=== PATIENT | female | born 1990 | race Caucasian/White ===

== ENCOUNTER → 2019-12-19 14:05 | Outpatient (BNVA) | payer OTHER, SELFPAY | PROVIDERS: Family Provider Electrodiagnostic Medicine; PCP Electrodiagnostic Medicine; Visit Provider Internal Medicine | DX: E03.9 Hypothyroidism, unspecified (principal) | CPT/HCPCS: 99203 ==

== ENCOUNTER 2020-02-05 10:52 | Emergency (ER) | payer OTHER, SELFPAY ==
[2020-02-05 11:17] VITALS: BP 132/83; PULSE 92; RESP 16; TEMP 37; O2SAT 97; BMI 30.8
--- NOTE | 2020-02-05 12:54 | CT_ITS ---
WS: [id number] CT ABDOMEN AND PELVIS WITH CONTRAST HISTORY: RLQ pain TECHNIQUE: Imaging performed of the abdomen and pelvis with IV contrast. Single phase imaging of the abdomen. Coronal and sagittal reformats are submitted. All CT scans at [facility] use at least one of these dose optimization techniques: automated exposure control; mA and/or kV adjustment per patient size (includes targeted exams where dose is matched to clinical indication); or iterativ e reconstruction. IV CONTRAST: Omnipaque 300; 95 mL IV. Oral contrast: No DLP: 750.99 mGy.cm COMPARISON: 09/12/2013 Lower thorax: Lung bases are clear. Heart is normal size. No hiatal hernia. Liver/biliary system: Normal size with no intrahepatic dilatation. Gallbladder: Normal. No gallstones or wall thickening. No pericholecystic fluid. Pancreas: Normal. Spleen: Normal. Adrenal glands: Normal. Right kidney: Normal. Left kidney: Normal. Aorta: Normal. Lymphadenopathy: None. Free fluid: None. GI tract: Normal appendix. No GI tract obstruction. No wall thickening or evidence for diverticulitis . Abdominal wall: Unremarkable abdominal wall. No hernia. Pelvis: Normally distended urinary bladder. Small bilateral ovarian follicles. Bones: Straightening of the normal lumbar lordosis. CT/CT abdomen pelvis w con* [id number] IMPRESSION: 1. No evidence for appendicitis. 2. No renal calcification or obstruction. 3. No ascites or acute inflammatory process.
[2020-02-05 12:55] VITALS: O2SAT 97
[2020-02-05] MEDS: sodium chloride 0.9% 1,000 ML 999 ML IV (13:12)
[2020-02-05 13:23] LABS: Basophils % 0.2 %; Eosinophils # 0.1 10^3/uL (0.0-0.8); Eosinophils % 0.8 %; Hematocrit 42.3 % (37.0-47.0); Hemoglobin 13.9 g/dL (11.5-15.3); Lymphocytes # 2.4 10^3/uL (0.8-4.8); Lymphocytes % 22.5 %; Mean Corpuscular HGB Conc 32.9 g/dL (30.0-36.0); Mean Corpuscular Hemoglobin 27.5 pg (28.0-34.0); Mean Corpuscular Volume 83.8 fL (81-99); Mean Platelet Volume 9.8 fL (7.4-10.4); Monocytes # 0.8 10^3/uL (0.2-0.9); Monocytes % 7.4 %; Neutrophils # 7.24 10^3/uL (1.8-7.7); Neutrophils % 68.6 %; Nucleated Red Blood Cells % 0 %; Platelet Count 297 10^3/cmm (130-400); Red Blood Count 5.05 10^6/uL (4.1-5.3); White Blood Count 10.5 10^3/uL (4.0-10.0)
--- NOTE | 2020-02-05 13:23 | ED_ITS ---
HPI - Abdominal Pain General: Chief Complaint: Abdominal Pain Stated Complaint: RLQ pain, n/v Time Seen by Provider: 02/05/20 12:49 History of Present Illness: HPI narrative: This patient is a 30-year-old female comes in today with right lower quadrant pain. It started through the night and she has had some vomiting and dry heaves this morning. She said she was wrestling with her daughter last night and got body slammed onto her right side. She is not sure if that is why she is having the pain or not. She denies any chest pain or shortness of breath. No upper abdominal pain. She went and saw her PCP and he sent her to the ER for evaluation of her appendix. She denies fevers or chills. She has no cough. She denies dysuria or hematuria but it does make her abdomen hurt in the right lower quadrant when she urinates. She has had a hysterectomy but still has her appendix and gallbladder. MD elicited complaint: abdominal pain Pertinent past history: none Onset (ago): day(s) (1) Pain Consistency: constant Location: RLQ Severity: severe Quality: sharp Radiation: none Migration to: no migration Exacerbating factors: movement Relieving factors: nothing Associated Symptoms: Reports anorexia, nausea and vomiting; Denies chills and fever(s) Review of Systems General: Reports: 10 or more systems reviewed and unremarkable except in HPI and below Const: Denies: fever(s), chills, fatigue or malaise Eyes: Denies: change in vision ENMT: Denies: odynophagia Card: Denies: chest pain or swelling of feet/ankles Resp: Denies: dyspnea, productive cough or non-productive cough GI: Reports: abdominal pain, nausea and vomiting : Denies: flank pain or difficulty voiding Musc: Denies: neck pain or back pain Skin/Breast: Denies: rash Neuro: Denies: headache(s), numbness in extremities or weakness in extremities Rayo/Lymph: Denies: easy bruising or easy bleeding PFSH ED PFSH: Medical History Anemia Hypothyroidism Vitamin B deficiency Vitamin D deficiency Surgical History H/O: hysterectomy History of tonsillectomy Family History Mother Stroke Father CAD (coronary artery disease) Myocardial infarction Grandfather Cancer luekemia Grandfather Chronic kidney disease (CKD) Social History Smoking and tobacco status: never smoked Alcohol intake: never Physical Exam Const: COMMON NORMALS: no acute distress, patient oriented x3, no limitations and alert GENERAL APPEARANCE: cooperative and comfortable HENMT: HEAD & SCALP: normal to inspection FACE & SINUS: normal facial exam Eye: GENERAL EYE: appearance normal, both eyes and all related structures Neck/C-Spine: COMMON NORMALS: supple, no meningeal signs and no JVD Chest: COMMONS NORMALS: normal inspection of the chest Resp: COMMON NORMALS: normal respiratory effort, No use of accessory muscles and clear to auscultation bilaterally AUSCULTATION: clear to auscultation bilaterally Cardio: COMMON NORMALS: no JVD, regular rate, regular rhythm and No murmurs present (Cardio) RATE: regular rate RHYTHM: regular rhythm GI: COMMON NORMALS: Normal to inspection, nondistended, normoactive bowel sounds present, Soft to palpation and non-tender INSPECTION: Yes normal to inspection AUSCULTATION: Yes normoactive bowel sounds PALPATION: Yes Soft to palpation and Yes Tenderness to palpation present (GI) Details: RLQ Back/Pelvis: COMMON NORMALS: thoracic and lumbar spine normal to inspection Extremity: COMMON NORMALS: normal to inspection Neuro: COMMON NORMALS: patient oriented x3, moves all extremities, no focal motor deficits and no sensory deficits noted SENSORIUM/ORIENTATION: Yes alert MENINGEAL SIGNS: Yes no meningeal signs Psych: COMMON NORMALS: mental status grossly normal, cooperative and normal affect Skin: COMMON NORMALS: no rashes or lesions noted and turgor normal GENERAL SKIN EXAM: no rashes or lesions noted and turgor normal Course ED course: CT was normal. The patient was counseled that even with a normal CT if she has worsening or persistent symptoms she needs to be reevaluated. She understands and will comply with this Vital Signs: Vital signs: Vital Signs Temperature 98.6 F 02/05/20 11:17 Pulse Rate 86 02/05/20 15:35 Respiratory Rate 16 02/05/20 11:17 Blood Pressure 116/79 02/05/20 15:35 Pulse Oximetry 97 02/05/20 15:35 MDM - Abdominal Pain Lab Data: Labs: Lab Results 02/05/20 02/05/20 02/05/20 Range/Units 13:05 13:05 13:10 WBC 10.5 H (4.0-10.0) 10^3/ uL RBC 5.05 (4.1-5.3) 10^6/u L Hgb 13.9 (11.5-15.3) g/dL Hct 42.3 (37.0-47.0) % MCV 83.8 (81-99) fL MCH 27.5 L (28.0-34.0) pg MCHC 32.9 (30.0-36.0) g/dL RDW 13.0 (12.1-15.1) % Plt Count 297 (130-400) 10^3/c mm MPV 9.8 (7.4-10.4) fL Neut % (Auto) 68.6 % Lymph % (Auto) 22.5 % [place] % (Auto) 7.4 % Eos % (Auto) 0.8 % Baso % (Auto) 0.2 % Neut # (Auto) 7.24 (1.8-7.7) 10^3/u L Lymph # (Auto) 2.4 (0.8-4.8) 10^3/u L [place] # (Auto) 0.8 (0.2-0.9) 10^3/u L Eos # (Auto) 0.1 (0.0-0.8) 10^3/u L Baso # (Auto) 0.0 (0.0-0.1) 10^3/u L Nucleated RBC % (a uto) 0 % Nucleated RBCs # 0.0 /100WBC Sodium (136-145) mmol/L Potassium (3.5-5.1) mmol/L Chloride (98-107) mmol/L Carbon Dioxide (22-29) mmol/L Anion Gap (5-19) BUN (6-20) mg/dL Creatinine (0.5-0.9) mg/dL GFR Calculation (90-130) mL/min Glucose (65-115) mg/dL Calculated Osmolal ity (285-295) mOsm/k g Calcium (8.5-10.5) mg/dL Total Bilirubin (0.15-1.2) mg/dL AST (0-32) U/L ALT (0-33) U/L Alkaline Phosphata se (35-105) IU/L Total Protein (6.6-8.7) g/dL Albumin (3.5-5.2) g/dL Globulin (1.3-4.6) g/dL Lipase (13-60) U/L Urine Color Yellow (Yellow) Urine Appearance Hazy A (CLEAR) Urine pH 7 (5-7) Ur Specific Gravit y 1.010 (1.005-1.030) Urine Protein Neg (Negative) Urine Glucose (UA) Norm (Normal) Urine Ketones 1+ H (Negative) Urine Blood Neg (Negative) Urine Nitrate Negative (Negative) Urine Bilirubin Neg (Negative) Urine Urobilinogen Norm (Negative) mg/dL Ur Leukocyte Anna Marie ase Negative (Negative) Urine RBC 0-4 H (0-2) /hpf Urine WBC 0-4 H (0-5) /hpf Ur Squamous Epith Cells 0-4 H (0-5) /hpf Amorphous Sediment Not Reportable Urine Bacteria 2+ H (NONE) /hpf Urine Mucus 1+ /hpf Urine HCG, Qual Negative (Negative) 02/05/20 Range/Units 13:10 WBC (4.0-10.0) 10^3/ uL RBC (4.1-5.3) 10^6/u L Hgb (11.5-15.3) g/dL Hct (37.0-47.0) % MCV (81-99) fL MCH (28.0-34.0) pg MCHC (30.0-36.0) g/dL RDW (12.1-15.1) % Plt Count (130-400) 10^3/c mm MPV (7.4-10.4) fL Neut % (Auto) % Lymph % (Auto) % [place] % (Auto) % Eos % (Auto) % Baso % (Auto) % Neut # (Auto) (1.8-7.7) 10^3/u L Lymph # (Auto) (0.8-4.8) 10^3/u L [place] # (Auto) (0.2-0.9) 10^3/u L Eos # (Auto) (0.0-0.8) 10^3/u L Baso # (Auto) (0.0-0.1) 10^3/u L Nucleated RBC % (a uto) % Nucleated RBCs # /100WBC Sodium 140 (136-145) mmol/L Potassium 3.8 (3.5-5.1) mmol/L Chloride 102 (98-107) mmol/L Carbon Dioxide 26 (22-29) mmol/L Anion Gap 15.8 (5-19) BUN 9 (6-20) mg/dL Creatinine 0.8 (0.5-0.9) mg/dL GFR Calculation 83.7 L (90-130) mL/min Glucose 101 (65-115) mg/dL Calculated Osmolal ity 289 (285-295) mOsm/k g Calcium 9.8 (8.5-10.5) mg/dL Total Bilirubin 0.5 (0.15-1.2) mg/dL AST 28 (0-32) U/L ALT 15 (0-33) U/L Alkaline Phosphata se 103 (35-105) IU/L Total Protein 7.8 (6.6-8.7) g/dL Albumin 4.6 (3.5-5.2) g/dL Globulin 3.2 (1.3-4.6) g/dL Lipase 22 (13-60) U/L Urine Color (Yellow) Urine Appearance (CLEAR) Urine pH (5-7) Ur Specific Gravit y (1.005-1.030) Urine Protein (Negative) Urine Glucose (UA) (Normal) Urine Ketones (Negative) Urine Blood (Negative) Urine Nitrate (Negative) Urine Bilirubin (Negative) Urine Urobilinogen (Negative) mg/dL Ur Leukocyte Anna Marie ase (Negative) Urine RBC (0-2) /hpf Urine WBC (0-5) /hpf Ur Squamous Epith Cells (0-5) /hpf Amorphous Sediment Urine Bacteria (NONE) /hpf Urine Mucus /hpf Urine HCG, Qual (Negative) Discharge Plan Discharge Patient Disposition: Home Clinical Impression: Abdominal pain Qualifiers: Abdominal location: right lower quadrant Qualified Code(s): R10.31 - Right lower quadrant pain Condition: Stable Prescriptions: No Action levothyroxine 50 mcg capsule 50 mcg PO DAILY RF: 0 multivitamin Capsule 1 cap PO DAILY RF: 0 Discharge Orders: Discharge Order (Routine); Ordered 02/05/20 Ordered By: Tena Martin Referrals: Fabrice Lu DO [Primary Care Provider] - Discharge Diet: Usual diet Discharge Activity: Resume usual activity Patient Instructions: Abdominal Pain (ED) Activity Restrictions/Additional Instructions: Please return to the ER if you do not feel that you are getting better or if you have worsening symptoms over the next day. Although the CT and blood work was normal today continuing symptoms would indicate need for further work-up. Discharge Date/Time: 02/05/20 15:35 Coding Level of Care Code ED Mooner for Chg Fwd Exam Comprehensive
[2020-02-05 13:34] LABS: Add Urine Microscopic? YES; Bilirubin Urine Neg (Negative); Blood Urine Neg (Negative); Glucose Urine UA Norm (Normal); Ketones Urine 1+ (Negative); Leukocyte Esterase Urine Negative (Negative); Nitrate Urine Negative (Negative); Protein Urine Neg (Negative); Urine Appearance Hazy (CLEAR); Urine Color Yellow (Yellow); Urobilinogen Urine Norm (Negative); pH Urine 7 (5-7)
--- NOTE | 2020-02-05 13:45 | PC.NURSE ---
pt to ct scan by stretcher with tech
[2020-02-05 13:47] LABS: Alanine Aminotransferase 15 U/L (0-33); Albumin Level 4.6 g/dL (3.5-5.2); Alkaline Phosphatase 103 IU/L (35-105); Anion Gap 15.8 (5-19); Aspartate Amino Transferase 28 U/L (0-32); Blood Urea Nitrogen 9 mg/dL (6-20); Calcium 9.8 mg/dL (8.5-10.5); Carbon Dioxide 26 mmol/L (22-29); Chloride 102 mmol/L (98-107); Globulin 3.2 g/dL (1.3-4.6); Glomerular Filtration Rate 83.7 mL/min (90-130); Glucose 101 mg/dL (65-115); Lipase 22 U/L (13-60); Osmolality Calculated 289 mOsm/kg (285-295); Potassium 3.8 mmol/L (3.5-5.1); Sodium 140 mmol/L (136-145); Total Bilirubin 0.5 mg/dL (0.15-1.2); Total Protein 7.8 g/dL (6.6-8.7)
[2020-02-05 13:48] LABS: WBC Urine 0-4 /hpf (0-5)
[2020-02-05 13:49] LABS: Add Urine Culture? Yes; Bacteria Urine 2+ /hpf; Mucus Urine 1+ /hpf; RBC Urine 0-4 /hpf (0-2); Squamous Epithelial Cell Urine 0-4 /hpf (0-5)
[2020-02-05] MEDS: iohexol 300 mg/mL 100 mL Btl IV (13:49)
--- NOTE | 2020-02-05 15:19 | PC.NURSE ---
pt states her abd pain is worsening. pt continues to deny the need or want for any pain medication
[2020-02-05 15:35] VITALS: BP 116/79; PULSE 86; O2SAT 97
== END 2020-02-05 15:35 | disposition home or self-care (01) ==
PROVIDERS: Nurse Practitioner Family; Emergency Provider Emergency Medicine; Family Provider Electrodiagnostic Medicine; PCP Electrodiagnostic Medicine
DX: R10.31 Right lower quadrant pain (principal)
CPT/HCPCS: 12345; 74177; 80053; 81001; 81025; 83690; 85025; 87086; 96360; 99283; J7030; Q9967

== ENCOUNTER 2020-02-28 16:02 | Outpatient (CLI) | payer OTHER, SELFPAY ==
[2020-02-28 17:21] LABS: Free T4 Free Thyroxine 1.53 ng/dL (0.82-1.77); Thyroid Stimulating Hormone 1.25 uIU/mL (0.27-4.20)
== END 2020-02-28 16:03 | disposition home or self-care (01) ==
LOC: LAB 16:13
PROVIDERS: Family Provider Electrodiagnostic Medicine; PCP Electrodiagnostic Medicine; Visit Provider Internal Medicine
DX: E03.9 Hypothyroidism, unspecified (principal)
CPT/HCPCS: 36415; 84439; 84443; 86376

== ENCOUNTER → 2020-03-02 15:56 | Outpatient (BNVA) | payer OTHER, SELFPAY | PROVIDERS: Family Provider Electrodiagnostic Medicine; PCP Electrodiagnostic Medicine; Visit Provider Internal Medicine | DX: E03.9 Hypothyroidism, unspecified (principal) | CPT/HCPCS: 99213 ==

== ENCOUNTER → 2020-05-25 16:15 | Outpatient (BNVA) | payer OTHER, SELFPAY | PROVIDERS: Family Provider Electrodiagnostic Medicine; PCP Electrodiagnostic Medicine; Visit Provider Internal Medicine | DX: E03.9 Hypothyroidism, unspecified (principal); R23.2 Flushing | CPT/HCPCS: 99214 ==

== ENCOUNTER 2020-08-22 20:55 | Emergency (ER) | payer OTHER, SELFPAY ==
[2020-08-22 21:03] VITALS: BP 143/76; PULSE 111; RESP 18; TEMP 36.9; O2SAT 99; BMI 29.5
--- NOTE | 2020-08-22 21:50 | XRR_ITS ---
PROCEDURE INFORMATION: Exam: XR Chest Exam date and time: 08/22/2020 10:15 PM Age: 30 years old Clinical indication: Chest pain; Type not specified; Additional info: Cp TECHNIQUE: Imaging protocol: XR of the chest. Views: 1 view. COMPARISON: No relevant prior studies available. FINDINGS: Lungs: There are some strandy opacities present in the left lower hemithorax likely representing atelectasis. A left basilar pneumonia cannot entirely excluded. Pleural spaces: Unremarkable. No pleural effusion. No pneumothorax. Heart/Mediastinum: Unremarkable. No cardiomegaly. Bones/joints: Unremarkable. XR/XR chest 1V portable [id number] IMPRESSION: Strandy opacities present in the left lower hemithorax likely represents atelectasis although left basilar pneumonia cannot be entirely excluded.
[2020-08-22 21:56] LABS: Basophils % 0.2 %; Eosinophils # 0.1 10^3/uL (0.0-0.8); Eosinophils % 1.4 %; Hemoglobin 12.6 g/dL (11.5-15.3); Lymphocytes # 3.9 10^3/uL (0.8-4.8); Lymphocytes % 41.3 %; Mean Corpuscular HGB Conc 34.1 g/dL (30.0-36.0); Mean Corpuscular Volume 85.3 fL (81-99); Mean Platelet Volume 10.5 fL (7.4-10.4); Monocytes # 0.8 10^3/uL (0.2-0.9); Monocytes % 8.5 %; Neutrophils # 4.61 10^3/uL (1.8-7.7); Neutrophils % 48.4 %; Nucleated Red Blood Cells % 0 %; Platelet Count 297 10^3/cmm (130-400); Red Blood Count 4.34 10^6/uL (4.1-5.3); Red Cell Distribution Width 12.9 % (12.1-15.1); White Blood Count 9.5 10^3/uL (4.0-10.0)
--- NOTE | 2020-08-22 22:00 | PC.NURSE ---
EKG taken and given to Dr. Tsang
[2020-08-22] MEDS: sodium chloride 0.9% 1,000 ML 999 ML IV (22:04)
[2020-08-22 22:05] LABS: D Dimer 0.66 ug/mIFEU (0-0.59)
[2020-08-22] MEDS: lidocaine 2% viscous 15 ML, aluminum-mag hydrox-simethicon 30 ML, sucralfate oral liq 1 GM PO (22:05)
[2020-08-22 22:07] VITALS: BP 139/87; PULSE 124; RESP 16; O2SAT 99
[2020-08-22 22:08] LABS: Alanine Aminotransferase 20 U/L (0-33); Albumin Level 4.7 g/dL (3.5-5.2); Alkaline Phosphatase 90 IU/L (35-105); Aspartate Amino Transferase 25 U/L (0-32); Blood Urea Nitrogen 12 mg/dL (6-20); Calcium 9.3 mg/dL (8.5-10.5); Carbon Dioxide 22 mmol/L (22-29); Chloride 106 mmol/L (98-107); Globulin 2.1 g/dL (1.3-4.6); Glucose 134 mg/dL (65-115); Lipase 28 U/L (13-60); Osmolality Calculated 294 mOsm/kg (285-295); Sodium 141 mmol/L (136-145); Total Bilirubin 0.2 mg/dL (0.15-1.2); Total Protein 6.8 g/dL (6.6-8.7)
[2020-08-22 22:11] LABS: Troponin(5th) Baseline 6 ng/L (0-10)
[2020-08-22 22:20] LABS: Anion Gap 16.6 (5-19); Potassium 3.6 mmol/L (3.5-5.1)
--- NOTE | 2020-08-22 22:28 | CTR_ITS ---
PROCEDURE INFORMATION: Exam: CTA Chest With Contrast Exam date and time: 08/22/2020 10:29 PM Age: 30 years old Clinical indication: Chest pain and sternal or substernal pain; Type not specified TECHNIQUE: Imaging protocol: Computed tomographic angiography of the chest with contrast. 3D rendering (Not supervised by radiologist): MIP and/or 3D reconstructed images were created by the technologist. Radiation optimization: All CT scans at this facility use at least one of these dose optimization techniques: automated exposure control; mA and/or kV adjustment per patient size (includes targeted exams where dose is matched to clinical indication); or iterative reconstruction. Contrast material: OMNIPAQUE 350; Contrast volume: 70 ml; Contrast route: INTRAVENOUS (IV); COMPARISON: CR XR chest 1V portable [id number] 08/22/2020 10:03 PM RADIATION DOSE METRICS: Total DLP (mGy-cm): 515.78 FINDINGS: Pulmonary arteries: Normal. No pulmonary emboli. Aorta: Unremarkable. No aortic aneurysm. No aortic dissection. Lungs: Unremarkable. No consolidation. No masses. Pleural spaces: Unremarkable. No pneumothorax. No pleural effusion. Heart: Unremarkable. No cardiomegaly. No pericardial effusion. Lymph nodes: There is a small the right celiac lymph node present there is below CT criteria for lymphadenopathy. Bones/joints: Unremarkable. No acute fracture. Soft tissues: Unremarkable. CT/CT angio chest PE protcl [id number] IMPRESSION: There is no evidence for pulmonary emboli. There are no acute chest findings. Radiation Dose CTDIVOL = (mGy): DLP = 515.78 (mGy-cm)
[2020-08-22] MEDS: iohexol 350 mg/mL 100 mL Btl IV (22:46)
[2020-08-22 22:57] LABS: Thyroid Stimulating Hormone 1.42 uIU/mL (0.27-4.20)
[2020-08-22] MEDS: LORazepam 2 mg/mL INJ 1 mL 1 MG IVP (23:12)
[2020-08-22] MEDS: metoprolol tartrate 1 mg/1 mL SDV 5 mL 5 MG IV (23:14)
[2020-08-22 23:15] VITALS: BP 107/82; PULSE 104; RESP 17; O2SAT 100
[2020-08-22 23:45] LABS: Troponin 5 2HR 6.17 ng/L (0-10); Troponin 5 2HR Delta 0.17 ABS# (0-10)
[2020-08-22 23:55] VITALS: BP 114/77; PULSE 96; RESP 17; O2SAT 98
--- NOTE | 2020-08-23 07:58 | W.ED.CHESTPA ---
HPI - Chest Pain General: Chief Complaint: Chest Pain Stated Complaint: chest pains passed out in car shaking bad Time Seen by Provider: 08/22/20 21:33 History of Present Illness: HPI narrative: 30-year-old female presents with onset of chest discomfort. She says that she was relaxing at home when it started. It seemed to worsen. On the way to the hospital, she became worried about the pain, started breathing heavily, and had a panic attack . That has improved, but she still having chest discomfort. She locates the pain substernally and epigastric area. She was mildly short of breath with it. She was not nauseated or diaphoretic. MD complaint: chest pain Onset (ago): minute(s) Timing of current episode: constant Prior episodes: No Onset: during rest Pain location: substernal and epigastric Pain radiation: none Quality: aching Relieving factors: nothing Exacerbating factors: nothing Associated symptoms: Reports dyspnea and palpitations; Deny abdominal pain, fever(s), nausea, syncope or vomiting Review of Systems Const: Denies: fever(s) or chills Eyes: Reports: blurry vision (in car on way while hyperventilating. resolved now) ENMT: Denies: throat pain Card: Reports: chest pain and palpitations; Denies: syncope Resp: Reports: dyspnea; Denies: productive cough or non-productive cough GI: Denies: abdominal pain, nausea, vomiting or dysphagia : Denies: difficulty voiding Neuro: Reports: headache(s) PFSH ED PFSH: Medical History (Updated 08/22/20 @ 23:36 by Alek Tsang DO) Anemia Hypothyroidism Vitamin B deficiency Vitamin D deficiency Surgical History H/O: hysterectomy History of tonsillectomy Family History Mother Stroke Father CAD (coronary artery disease) Myocardial infarction Grandfather Cancer luekemia Grandfather Chronic kidney disease (CKD) Social History Smoking and tobacco status: never smoked Alcohol intake: never Physical Exam Const: GENERAL APPEARANCE: well developed and anxious (mildly) ORIENTATION/CONSCIOUSNESS: Yes oriented to person, Yes oriented to place and Yes oriented to time HENMT: COMMON NORMALS: normocephalic, external ears normal and Normal external nose present HEAD & SCALP: normocephalic FACE & SINUS: normal facial exam NOSE: Normal external nose present and No nasal discharge present EXTERNAL EAR: Yes external ears normal Eye: COMMON NORMALS: Equal, round and reactive pupils present, EOMs intact bilaterally and conjunctivae normal EYELID: eyelids normal CONJUNCTIVA: Yes conjunctivae normal PUPIL: Yes Equal, round and reactive pupils present Neck/C-Spine: COMMON NORMALS: full ROM GENERAL: No tracheal deviation Chest: COMMONS NORMALS: normal inspection of the chest CHEST: No tenderness Resp: COMMON NORMALS: clear to auscultation bilaterally EFFORT & INSPECTION: No tachypneic, No respiratory distress, No retractions, No uses accessory muscles and No tracheal deviation AUSCULTATION: clear to auscultation bilaterally, no rhonchi, no wheezes and lung sounds not diminished Cardio: COMMON NORMALS: regular rate and regular rhythm RATE: regular rate RHYTHM: regular rhythm HEART SOUNDS: no murmurs PERIPHERAL PULSES: radial pulses present GI: INSPECTION: No abdominal distension AUSCULTATION: No Hyperactive bowel sounds present and No Hypoactive bowel sounds present PALPATION: Yes Tenderness to palpation present (GI) (mild epigastric), No Guarding due to palpation present (GI) and No Rigid due to palpation PERCUSSION: no dullness to percussion and no tympanic to percussion Neuro: SENSORIUM/ORIENTATION: Yes oriented to person, Yes oriented to place and Yes oriented to time Psych: COMMON NORMALS: mental status grossly normal Skin: COMMON NORMALS: no rashes or lesions noted GENERAL SKIN EXAM: no rashes or lesions noted Course Vital Signs: Vital signs: Vital Signs Temperature 98.4 F 08/22/20 21:03 Pulse Rate 96 08/22/20 23:55 Respiratory Rate 17 08/22/20 23:55 Blood Pressure 114/77 08/22/20 23:55 Pulse Oximetry 98 08/22/20 23:55 MDM - Chest Pain MDM Narrative: Medical decision making narrative: Her EKG showed a sinus tachycardia with a deep S wave in lead I, and a small Q-wave in lead III. No acute ST changes. Labs are essentially normal. D-dimer was minimally elevated per our lab. CTA is negative. GI cocktail did not seem to help her pain much. Discussed the differential diagnosis of causes of chest pain that are of immediate threat, she does not seem to have any of these. She will be allowed discharge. Lab Data: Labs: Lab Results 08/22/20 08/22/20 08/22/20 Range/Units 21:23 21:23 21:23 WBC 9.5 (4.0-10.0) 10^3/ uL RBC 4.34 (4.1-5.3) 10^6/u L Hgb 12.6 (11.5-15.3) g/dL Hct 37.0 (37.0-47.0) % MCV 85.3 (81-99) fL MCH 29.0 (28.0-34.0) pg MCHC 34.1 (30.0-36.0) g/dL RDW 12.9 (12.1-15.1) % Plt Count 297 (130-400) 10^3/c mm MPV 10.5 H (7.4-10.4) fL Neut % (Auto) 48.4 % Lymph % (Auto) 41.3 % [place] % (Auto) 8.5 % Eos % (Auto) 1.4 % Baso % (Auto) 0.2 % Neut # (Auto) 4.61 (1.8-7.7) 10^3/u L Lymph # (Auto) 3.9 (0.8-4.8) 10^3/u L [place] # (Auto) 0.8 (0.2-0.9) 10^3/u L Eos # (Auto) 0.1 (0.0-0.8) 10^3/u L Baso # (Auto) 0.0 (0.0-0.1) 10^3/u L Nucleated RBC % (a uto) 0 % Nucleated RBCs # 0.0 /100WBC D-Dimer 0.66 H (0-0.59) ug/mIFE U Sodium 141 (136-145) mmol/L Potassium 3.6 (3.5-5.1) mmol/L Chloride 106 (98-107) mmol/L Carbon Dioxide 22 (22-29) mmol/L Anion Gap 16.6 (5-19) BUN 12 (6-20) mg/dL Creatinine 0.9 (0.5-0.9) mg/dL GFR Calculation 73.0 L (90-130) mL/min Glucose 134 H (65-115) mg/dL Calculated Osmolal ity 294 (285-295) mOsm/k g Calcium 9.3 (8.5-10.5) mg/dL Total Bilirubin 0.2 (0.15-1.2) mg/dL AST 25 (0-32) U/L ALT 20 (0-33) U/L Alkaline Phosphata se 90 (35-105) IU/L Troponin T Baselin e (0-10) ng/L Troponin T 120 Min [place] (0-10) ng/L Delta Troponin T (0-10) ABS# Total Protein 6.8 (6.6-8.7) g/dL Albumin 4.7 (3.5-5.2) g/dL Globulin 2.1 (1.3-4.6) g/dL Lipase 28 (13-60) U/L TSH (0.27-4.20) uIU/ mL 08/22/20 08/22/20 08/22/20 Range/Units 21:23 21:23 23:19 WBC (4.0-10.0) 10^3/ uL RBC (4.1-5.3) 10^6/u L Hgb (11.5-15.3) g/dL Hct (37.0-47.0) % MCV (81-99) fL MCH (28.0-34.0) pg MCHC (30.0-36.0) g/dL RDW (12.1-15.1) % Plt Count (130-400) 10^3/c mm MPV (7.4-10.4) fL Neut % (Auto) % Lymph % (Auto) % [place] % (Auto) % Eos % (Auto) % Baso % (Auto) % Neut # (Auto) (1.8-7.7) 10^3/u L Lymph # (Auto) (0.8-4.8) 10^3/u L [place] # (Auto) (0.2-0.9) 10^3/u L Eos # (Auto) (0.0-0.8) 10^3/u L Baso # (Auto) (0.0-0.1) 10^3/u L Nucleated RBC % (a uto) % Nucleated RBCs # /100WBC D-Dimer (0-0.59) ug/mIFE U Sodium (136-145) mmol/L Potassium (3.5-5.1) mmol/L Chloride (98-107) mmol/L Carbon Dioxide (22-29) mmol/L Anion Gap (5-19) BUN (6-20) mg/dL Creatinine (0.5-0.9) mg/dL GFR Calculation (90-130) mL/min Glucose (65-115) mg/dL Calculated Osmolal ity (285-295) mOsm/k g Calcium (8.5-10.5) mg/dL Total Bilirubin (0.15-1.2) mg/dL AST (0-32) U/L ALT (0-33) U/L Alkaline Phosphata se (35-105) IU/L Troponin T Baselin e 6 (0-10) ng/L Troponin T 120 Min [place] 6.17 (0-10) ng/L Delta Troponin T 0.17 (0-10) ABS# Total Protein (6.6-8.7) g/dL Albumin (3.5-5.2) g/dL Globulin (1.3-4.6) g/dL Lipase (13-60) U/L TSH 1.42 (0.27-4.20) uIU/ mL Discharge Plan Discharge Patient Disposition: Home Clinical Impression: Chest pain Qualifiers: Chest pain type: unspecified Qualified Code(s): R07.9 - Chest pain, unspecified Condition: Stable Prescriptions: No Action levothyroxine 50 mcg capsule 50 mcg PO DAILY RF: 0 multivitamin Capsule 1 cap PO DAILY RF: 0 cholecalciferol (vitamin D3) 1,250 mcg (50,000 unit) capsule PO RF: 0 mecobalamin (vitamin B12) 10,000 mcg recon soln IM RF: 0 liothyronine [Cytomel] 5 mcg tablet 5 mcg PO DAILY Qty: 90 RF: 3 Discharge Orders: Discharge ED (Routine); Ordered 08/22/20 Ordered By: Alek Tsang Referrals: Fabrice Lu DO [Primary Care Provider] - 1-3 days Discharge Diet: Advance as tolerated Discharge Activity: Increase activity as tolerated Patient Instructions: Chest Pain (ED) Activity Restrictions/Additional Instructions: Return for worsening chest pain, shortness of breath, fever greater than 100, vomiting, any other concerning symptoms. See your doctor this coming week, as more outpatient testing may be needed. Coding Level of Care Code ED Cinnamon Grinder for Chg Fwd Exam Comprehensive
== END 2020-08-22 23:55 | disposition home or self-care (01) ==
PROVIDERS: Emergency Provider Emergency Medicine; PCP Electrodiagnostic Medicine
DX: R07.9 Chest pain, unspecified (principal)
CPT/HCPCS: 71045; 71275; 80053; 83690; 84443; 84484; 85025; 85378; 96361; 96374; 96375; 99284; J2060; J3490; J7030; Q9967

== ENCOUNTER 2020-09-30 13:58 | Outpatient (CLI) | payer OTHER, SELFPAY ==
--- NOTE | 2020-09-30 14:11 | XR_ITS ---
WS: [id number] Left foot, 3 views, 09/30/2020 Clinical Data: PAIN IN JOINT INVOLVING ANKLE FOOT Comparison: None. Findings: No fractures or dislocations are seen. No bone destruction or erosion is noted. The joint spaces and soft tissues are normal. XR/XR foot LT min 3V* [id number] Impression: Negative left foot.
== END 2020-09-30 13:59 | disposition home or self-care (01) ==
LOC: RAD 14:05
PROVIDERS: PCP Electrodiagnostic Medicine; Visit Provider Electrodiagnostic Medicine
DX: M25.572 Pain in left ankle and joints of left foot (principal)
CPT/HCPCS: 73630

== ENCOUNTER → 2021-12-28 10:31 | Outpatient (BNVA) | payer BC, SELFPAY | PROVIDERS: PCP Electrodiagnostic Medicine; Visit Provider Registered Nurse Neonatal Intensive Care | DX: R50.9 Fever, unspecified (principal); H66.92 Otitis media, unspecified, left ear; Z20.822 Contact with and (suspected) exposure to COVID-19 | CPT/HCPCS: 87426 ==

== ENCOUNTER → 2022-05-12 10:19 | Outpatient (BNVA) | payer BC, SELFPAY | PROVIDERS: PCP Electrodiagnostic Medicine; Visit Provider Registered Nurse Neonatal Intensive Care | DX: H93.90 Unspecified disorder of ear, unspecified ear (principal) | CPT/HCPCS: 87400 ==

== ENCOUNTER 2024-10-06 03:19 | Emergency (ER) | payer BC, SELFPAY ==
[2024-10-06 03:26] VITALS: BP 120/88; PULSE 117; RESP 16; TEMP 37.2; O2SAT 99; BMI 27.4
--- NOTE | 2024-10-06 03:49 | ECG_ITS ---
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 Measurements Intervals [place] Rate: 102 P: 70 CO: 137 QRS: 66 QRSD: 85 T: 20 QT: 328 QTc: 428 Interpretive Statements SINUS TACHYCARDIA POSSIBLE RIGHT VENTRICULAR CONDUCTION DELAY [RSR (QR) IN V1/V2] NONSPECIFIC ST & T-WAVE ABNORMALITY ABNORMAL RHYTHM ECG No previous ECG available for comparison Electronically Signed On 10-06-2024 21:35:12 CDT by Rama Rodriguez M.D. [email or web address]
--- NOTE | 2024-10-06 03:49 | XRR_ITS ---
PROCEDURE INFORMATION: Exam: XR Chest Exam date and time: 10/06/2024 3:49 AM Age: 34 years old Clinical indication: Chest pressure; C/O chest pain; Additional info: Cp TECHNIQUE: Imaging protocol: Radiologic exam of the chest. Views: 1 view. COMPARISON: CT angio chest PE protcl [id number] 08/22/2020 10:58 PM FINDINGS: Lungs: Unremarkable. No consolidation. Pleural spaces: Unremarkable. No pleural effusion. No pneumothorax. Heart/Mediastinum: Unremarkable. No cardiomegaly. Bones/joints: Unremarkable. XR/XR chest 1V portable [id number] IMPRESSION: No visualized acute cardiopulmonary process.
--- NOTE | 2024-10-06 03:49 | ED_ITS ---
HPI - Chest Pain 2 General: Chief Complaint: Chest Pain Stated Complaint: CP jaw, neck, L shoulder Time Seen by Provider: 10/06/24 03:51 History of Present Illness: 34-year-old female with no prior history of cardiac disease. She presents with left-sided chest pain radiating into her jaw and left elbow. Started around 2 AM. Did not improve with Pepcid and aspirin at home. She states she has had a fever on and off for couple of days. No sick contacts. She has had slight cough. No nausea or vomiting. No shortness of breath. Related Data Home Medications ?Medication ?Instructions ?Recorded ?Confirmed omega 0-fjm-cwo-fish oil 60 mg-90 1 cap PO DAILY 05/1307/09/24 mg-500 mg capsule (Fish Oil) Previous Rx's ?Medication ?Instructions ?Recorded ketorolac 10 mg tablet 10 mg PO TID PRN pain #10 ta bs 10/06/24 sulfamethoxazole 800 1 tab PO BID 5 days #10 tabs 10/06/24 mg-trimethoprim 160 mg tablet (Bactrim DS) Allergies Allergy/AdvReac Type Severity Reaction Status Date / Time ceftriaxone (From Rocephin) Allergy JOSE-Nelda Verified 10/06/24 05:08 Lip/Tongue/Throat ciprofloxacin (From Cipro HC) Allergy JOSE-Martinll Verified 10/06/24 03:49 Lip/Tongue/Throat hydrocortisone (From Cipro Allergy ALGY-Swell Verified 10/06/24 03:49 HC) Lip/Tongue/Throat PFSH ED 2 PFSH: Medical History (Updated 10/06/24 @ 04:43 by Alek Tsang DO) Vitamin D deficiency Anemia Vitamin B deficiency Hypothyroidism Surgical History History of tonsillectomy H/O: hysterectomy Family History Mother Stroke Father CAD (coronary artery disease) Myocardial infarction Grandfather Cancer luekemia Grandfather Chronic kidney disease (CKD) Social History Smoking and tobacco/nicotine status: never used tobacco/nicotine Alcohol intake: never Substance/Drug Use: never Physical Exam 2 Const: COMMON NORMALS: no acute distress GENERAL APPEARANCE: cooperative; not ill appearing and not frail appearing HENMT: COMMON NORMALS: normocephalic, atraumatic and Normal external nose present HEAD & SCALP: normocephalic and atraumatic FACE & SINUS: normal facial exam and face symmetric NOSE: Normal external nose present Eye: COMMON NORMALS: Equal, round and reactive pupils present and EOMs intact bilaterally PUPIL: Yes Equal, round and reactive pupils present Neck/C-Spine: GENERAL: Yes trachea midline Chest: CHEST: Yes Symmetrical chest wall rise Resp: COMMON NORMALS: normal respiratory effort, No retractions, No use of accessory muscles and clear to auscultation bilaterally AUSCULTATION: clear to auscultation bilaterally Cardio: COMMON NORMALS: regular rhythm RATE: tachycardic (Mild) RHYTHM: regular rhythm GI: COMMON NORMALS: Normal to inspection, nondistended, normoactive bowel sounds present Extremity: COMMON NORMALS: no pedal edema Neuro: MARILYN COMA SCALE: document GCS findings [place] coma scale eye opening: Spontaneous Marilyn coma scale verbal response: Orientated [place] coma scale motor response: Obey commands [place] coma scale total score: 15 S ENSORY EXAM: Yes extremities (intact) Psych: COMMON NORMALS: speech normal SPEECH: Yes normal speech Skin: COMMON NORMALS: no rashes or lesions noted GENERAL SKIN EXAM: no rashes or lesions noted Course 2 Vital Signs: Vital signs: Vital Signs Temperature 98.9 F 10/06/24 03:26 Pulse Rate 97 10/06/24 05:52 Respiratory Rate 16 10/06/24 05:52 Blood Pressure 124/86 10/06/24 05:52 Pulse Oximetry 98 10/06/24 05:52 Oxygen Delivery Me thod Room Air 10/06/24 05:36 MDM - Chest Pain Medical Decision Making Patient has a temperature of 98.9. Vitals are otherwise stable. Initially was tachycardic, but this improved on its own. Pain is improved after morphine and Zofran here. CBC is normal. BMP is remarkable for a bicarbonate of 17. Creatinine is 0.8. First troponin is nondetectable. BNP is normal. D-dimer is 0.8, which does not meet years criteria for her age group and risk factor stratification. Given her temperature, significant pyuria on urinalysis, and 4+ ketones, she is given 2 L bolus of fluid with Rocephin for likely pyelonephritis. Patient broke out into a red rash and had a itchy throat post Rocephin administration. She has responded well to Benadryl and Pepcid as well as dexamethasone. She is not persistently tachycardic. She will be prescribed Bactrim as an outpatient. Pain is improved. Second troponin is in the lab. If remains negative, will be discharged with above findings. Lab Data 10/06/24 03:46 10/06/24 03:46 Radiology Impressions Chest X-Ray 10/06/24 03:49 IMPRESSION: No visualized acute cardiopulmonary process. Laboratory Results WBC 6.98 10^3/uL (3.29-11.43) 10/06/24 03:46 RBC 5.45 10^6/uL (3.85-5.65) 10/06/24 03:46 Hgb 15.40 g/dL (11.27-16.99) 10/06/24 03:46 Hct 44.5 % (36-47) 10/06/24 03:46 MCV 81.7 fl (85-98) L 10/06/24 03:46 MCH 28.3 pg (27-33) 10/06/24 03:46 MCHC 34.6 g/dL (30-55) 10/06/24 03:46 RDW 13.1 % (12.1-15.1) 10/06/24 03:46 Plt Count 209 10^3/cmm (157-399) 10/06/24 03:46 MPV 9.3 fL (7.4-10.4) 10/06/24 03:46 Neut % (Auto) 62.4 % 10/06/24 03:46 Lymph % (Auto) 23.6 % 10/06/24 03:46 [place] % (Auto) 11.3 % 10/06/24 03:46 Eos % (Auto) 2.0 % 10/06/24 03:46 Baso % (Auto) 0.4 % 10/06/24 03:46 Neut # (Auto) 4.35 10^3/uL (1.8-7.7) 10/06/24 03:46 Lymph # (Auto) 1.7 10^3/uL (0.8-4.8) 10/06/24 03:46 [place] # (Auto) 0.8 10^3/uL (0.2-0.9) 10/06/24 03:46 Eos # (Auto) 0.1 10^3/uL (0.0-0.8) 10/06/24 03:46 Baso # (Auto) 0.0 10^3/uL (0.0-0.1) 10/06/24 03:46 Nucleated RBC % (auto) 0 % 10/06/24 03:46 Nucleated RBCs # 0.0 /100WBC 10/06/24 03:46 D-Dimer 0.80 ug/mLFEU (0-0.59) H 10/06/24 03:46 Sodium 138 mmol/L (136-145) 10/06/24 03:46 Potassium 4.0 mmol/L (3.5-5.1) 10/06/24 03:46 Chloride 106 mmol/L (98-107) 10/06/24 03:46 Carbon Dioxide 17 mmol/L (22-29) L 10/06/24 03:46 Anion Gap 19.0 (5-19) 10/06/24 03:46 BUN 9 mg/dL (6-20) 10/06/24 03:46 Creatinine 0.8 mg/dL (0.5-0.9) 10/06/24 03:46 GFR Calculation 81.6 mL/min (90-130) L 10/06/24 03:46 Glucose 97 mg/dL (65-115) 10/06/24 03:46 Calculated Osmolality 285 mOsm/kg (285-295) 10/06/24 03:46 Lactic Acid 1.2 mmol/L (0.5-2.2) 10/06/24 03:46 Calcium 9.1 mg/dL (8.5-10.5) 10/06/24 03:46 Total Bilirubin 0.4 mg/dL (0.15-1.2) 10/06/24 03:46 AST 27 U/L (0-32) 10/06/24 03:46 ALT 35 U/L (0-33) H 10/06/24 03:46 Alkaline Phosphatase 113 U/L (35-105) H 10/06/24 03:46 Troponin T Baseline < 6 ng/L (0-10) 10/06/24 03:46 Troponin T 120 Minute < 6.0 ng/L (0-10) 10/06/24 05:22 Delta Troponin T 0 ABS# (0-10) 10/06/24 05:22 NT-Pro-B Natriuret Pep 89 pg/mL (0-125) 10/06/24 03:46 Total Protein 7.0 g/dL (6.6-8.7) 10/06/24 03:46 Albumin 4.4 g/dL (3.5-5.2) 10/06/24 03:46 Globulin 2.6 g/dL (1.3-4.6) 10/06/24 03:46 HCG, Qual Negative (Negative) 10/06/24 03:46 Urine Color Yellow (Yellow) 10/06/24 03:56 Urine Appearance Clear (CLEAR) 10/06/24 03:56 Urine pH 5.5 (5-7) 10/06/24 03:56 Ur Specific [place] 1.023 (1.005-1.030) 10/06/24 03:56 Urine Protein Negative (Negative) 10/06/24 03:56 Urine Glucose (UA) Negative (Normal) 10/06/24 03:56 Urine Ketones 4+ (Negative) 10/06/24 03:56 Urine Blood Negative (Negative) 10/06/24 03:56 Urine Nitrate Negative (Negative) 10/06/24 03:56 Urine Bilirubin Negative (Negative) 10/06/24 03:56 Urine Urobilinogen 1.0 mg/dL (Negative) 10/06/24 03:56 Ur Leukocyte Esterase 2+ (Negative) A 10/06/24 03:56 Urine RBC 3-5 /hpf (0-2) 10/06/24 03:56 Urine WBC 21-50 /hpf (0-5) H 10/06/24 03:56 Ur Squamous Epith Cells 6-10 /hpf (0-5) 10/06/24 03:56 Amorphous Sediment Not Reportable 10/06/24 03:56 Urine Bacteria None seen /hpf (NONE) 10/06/24 03:56 Hyaline Casts 0.40 /lpf 10/06/24 03:56 All radiology interpretation(s) finalized by discharge Discharge Plan Discharge Patient Disposition: Home Clinical Impression: Atypical chest pain, UTI (urinary tract infection), Acute dehydration Condition: Stable Prescriptions: New ketorolac 10 mg tablet 10 mg PO TID PRN (Reason: pain) Qty: 10 0RF sulfamethoxazole-trimethoprim [Bactrim DS] 800-160 mg tablet 1 tab PO BID 5 Days Qty: 10 0RF No Action omega 5-mcu-qez-fish oil [Fish Oil] 60-90-500 mg capsule 1 cap PO DAILY Discharge Orders: Discharge ED (Routine); Ordered 10/06/24 Ordered By: Alek Tsang Referrals: Fabrice Lu DO [Primary Care Provider, [facility]] - 1-3 days Patient Instructions: Chest Pain (ED), Dehydration (ED), Urinary Tract Infection in Women (ED), Opioid Safety, Pain Management Activity Restrictions/Additional Instructions: Drink plenty of clear liquids. Antibiotics as directed. Return for worsening pain, vomiting liquids or medications, shortness of breath, other concerning symptoms despite treatment. Call your doctor Monday for follow-up appointment. Print Language: Citizen Of [place] Coding Level of Care Code ED [employer] Helper for Mayuri Abdullahi
[2024-10-06 03:51] VITALS: BP 131/84; PULSE 109; RESP 16; O2SAT 98
[2024-10-06 03:54] LABS: Basophils % 0.4 %; Eosinophils # 0.1 10^3/uL (0.0-0.8); Hematocrit 44.5 % (36-47); Lymphocytes # 1.7 10^3/uL (0.8-4.8); Lymphocytes % 23.6 %; Mean Corpuscular HGB Conc 34.6 g/dL (30-55); Mean Corpuscular Hemoglobin 28.3 pg (27-33); Mean Corpuscular Volume 81.7 fl (85-98); Mean Platelet Volume 9.3 fL (7.4-10.4); Monocytes # 0.8 10^3/uL (0.2-0.9); Monocytes % 11.3 %; Neutrophils # 4.35 10^3/uL (1.8-7.7); Neutrophils % 62.4 %; Nucleated Red Blood Cells % 0 %; Platelet Count 209 10^3/cmm (157-399); Red Blood Count 5.45 10^6/uL (3.85-5.65); Red Cell Distribution Width 13.1 % (12.1-15.1); White Blood Count 6.98 10^3/uL (3.29-11.43)
[2024-10-06 04:04] LABS: HCG, Serum Qual Negative (Negative)
[2024-10-06 04:06] LABS: Bilirubin Urine Negative (Negative); Blood Urine Negative (Negative); Glucose Urine UA Negative (Normal); Ketones Urine 4+ (Negative); Leukocyte Esterase Urine 2+ (Negative); Nitrate Urine Negative (Negative); Protein Urine Negative (Negative); Specific Gravity, Urine 1.023 (1.005-1.030); Urine Appearance Clear (CLEAR); Urine Color Yellow (Yellow); pH Urine 5.5 (5-7)
[2024-10-06 04:11] LABS: Add Urine Microscopic? YES; Bacteria Urine None Seen /hpf; WBC Urine 21-50 /hpf (0-5)
[2024-10-06 04:13] LABS: Add Urine Culture? Yes
[2024-10-06] MEDS: ondansetron 2 mg/ML SDV 2 mL 4 MG IVP (04:15)
[2024-10-06] MEDS: morphine 4 mg/mL SDV 1 mL IVP (04:15)
[2024-10-06 04:16] LABS: Troponin(5th) Baseline < 6 ng/L (0-10)
[2024-10-06 04:19] VITALS: BP 155/106; PULSE 108; RESP 14; O2SAT 99
[2024-10-06 04:21] LABS: Alanine Aminotransferase 35 U/L (0-33); Albumin Level 4.4 g/dL (3.5-5.2); Alkaline Phosphatase 113 U/L (35-105); Aspartate Amino Transferase 27 U/L (0-32); Blood Urea Nitrogen 9 mg/dL (6-20); Calcium 9.1 mg/dL (8.5-10.5); Carbon Dioxide 17 mmol/L (22-29); Chloride 106 mmol/L (98-107); Creatinine Clr Calc Pharmacy 92.2913; Globulin 2.6 g/dL (1.3-4.6); Glomerular Filtration Rate 81.6 mL/min (90-130); Glucose 97 mg/dL (65-115); NT Pro B Type Natriuretic Pept 89 pg/mL (0-125); Osmolality Calculated 285 mOsm/kg (285-295); Sodium 138 mmol/L (136-145); Total Bilirubin 0.4 mg/dL (0.15-1.2)
[2024-10-06 04:49] VITALS: BP 131/91; PULSE 80; RESP 16; O2SAT 97
[2024-10-06] MEDS: sodium chloride 0.9% 1,000 ML 999 ML IV ×2 (04:49→05:17)
[2024-10-06 04:50] LABS: Lactic Sepsis W/Reflex 1.2 mmol/L (0.5-2.2)
[2024-10-06] MEDS: cefTRIAXone 1,000 mg SDV 1000 MG IVP (05:08)
[2024-10-06] MEDS: diphenhydrAMINE 50 mg/mL SDV 1mL IVP (05:17)
[2024-10-06] MEDS: dexamethasone 10 mg/mL INJ IVP (05:17)
[2024-10-06] MEDS: famotidine 20 mg/2 mL INJ IVP (05:17)
[2024-10-06 05:36] VITALS: BP 124/86; PULSE 98; RESP 16; O2SAT 98
[2024-10-06 05:49] LABS: Troponin 5 2HR < 6.0 ng/L (0-10); Troponin 5 2HR Delta 0 ABS# (0-10)
[2024-10-06 05:52] VITALS: BP 124/86; PULSE 97; RESP 16; O2SAT 98
== END 2024-10-06 06:01 | disposition home or self-care (01) ==
PROVIDERS: Emergency Provider Emergency Medicine; PCP Electrodiagnostic Medicine
DX: R07.89 Other chest pain (principal); N39.0 Urinary tract infection, site not specified; E86.0 Dehydration
CPT/HCPCS: 71045; 80053; 81001; 83605; 83880; 84484; 84703; 85025; 85378; 87040; 87086; 93005; 96361; 96374; 96375; 99285; J0696; J1100; J1200; J2270; J2405; J3490; J7030